=== PATIENT | male | born 1990 ===

== ENCOUNTER 2017-05-19 10:23 | Emergency (ER) | payer BC, OTHER ==
[2017-05-19 10:30] VITALS: BP 111/65
[2017-05-19] MEDS ORDERED: Tetan/Diph/Pertus SYR(Tdap)* 0.5 ML SYR(BOOSTRIX) use SYR IM ONE (10:50)
--- NOTE | 2017-05-19 10:50 | UC ---
Skin Complaint HPI - History of Current Complaint Chief Complaint: UCLowerExtremity Time Seen by Provider: 05/19/17 10:39 Stated Complaint: STEPPED ON NAIL Hx Obtained From: Patient Onset/Duration: Sudden Onset - stepped on nail last karen and hurt R foot Timing: Constant Onset Severity: Mild Current Severity: Moderate - more swollen and painful today Location: Foot (Right) Character: Swelling, Redness, Painful Aggravating Factor(s): Other - ambulation Alleviating Factor(s): Nothing Associated Signs & Symptoms: Positive: Negative Related History: Trauma - Allergy/Home Medications Allergies/Adverse Reactions: Allergies Allergy/AdvReac Type Severity Reaction Status Date / Time No Known Allergies Allergy Verified 05/19/17 10:29 Home Medications: Home Medications Ibuprofen TAB* [Advil TAB*] 600 mg PO ONCE PRN 05/19/17 [History Confirmed 05/19] Review of Systems Constitutional: Negative Respiratory: Negative Cardiovascular: Negative Motor: Negative Musculoskeletal: Negative Neurological: Negative Psychological: Negative All Other Systems Reviewed And Are Negative: Yes PMH/Surg Hx/FS Hx/Imm Hx Previously Healthy: Yes - Surgical History Surgical History: None - Family History Known Family History: Positive: None - Social History Occupation: Employed Full-time Lives: With Family Alcohol Use: Weekly Substance Use Type: Marijuana Smoking Status (MU): Light Every Day Tobacco Smoker Type: Cigarettes Amount Used/How Often: 5 cigs Length of Time of Smoking/Using Tobacco: 5 years Have You Smoked in the Last Year: Yes Cessation Counseling: Patient Advised to Stop - Immunization History Most Recent Tetanus Shot: unknown Physical Exam Triage Information Reviewed: Yes Appearance: Well-Appearing, No Pain Distress, Well-Nourished Vital Signs: Initial Vital Signs Temp 98.4 F 05/19/17 10:25 Pulse 74 05/19/17 10:25 Resp 18 05/19/17 10:25 BP 111/65 05/19/17 10:25 Pulse Ox 98 05/19/17 10:25 Vital Signs Reviewed: Yes Respiratory Exam: Normal Cardiovascular Exam: Normal Musculoskeletal Exam: Normal Musculoskeletal: Positive: Strength Intact, ROM Intact Neurological Exam: Normal Psychological Exam: Normal Skin: Positive: Other - PW sole R foot, mild redness, swelling, no drainage Course/Dx - Differential Diagnoses - Skin Complaint Differential Diagnoses: Cellulitis, Other - PW, FB - Diagnoses Provider Diagnoses: Puncture wound foot Discharge - Discharge Plan Condition: Good Disposition: HOME Prescriptions: Cephalexin CAP* [Keflex 500 CAP*] 500 mg PO QID #40 cap Patient Education Materials: Puncture Wound (ED), Diphtheria/Acellular Pertussis/Tetanus Vaccine (By injection) Referrals: No Primary Care Phys,NOPCP [Primary Care Provider] - Additional Instructions: elevate foot and keep clean and dry take antibiotic as directed report worsening ibuprofen 600mg every 6 hours as needed for pain
== END 2017-05-19 11:20 | disposition home or self-care (01) ==
LOC: UCEAST 10:23
DX: S91.331A Puncture wound without foreign body, right foot, initial encounter (principal); W22.8XXA Striking against or struck by other objects, initial encounter; Y93.9 Activity, unspecified; Y92.9 Unspecified place or not applicable; Y99.9 Unspecified external cause status; Z72.0 Tobacco use
CPT/HCPCS: 90471; 90715; 99202; G0463